=== PATIENT | female | born 1995 ===

== ENCOUNTER 2024-01-27 03:04 | Outpatient (CLI) | payer MEDICAID ==
[2024-01-27] VITALS (21 sets, daily range): BP systolic 94–128; BP diastolic 40–89; PULSE 50–91
[2024-02-02] MEDS ORDERED: OXYB-58 PO (19:42)
[2024-02-02] MEDS ORDERED: CHOL500050 PO (19:42)
[2024-02-02] MEDS ORDERED: FLUO20TA28 PO (19:42)
[2024-02-02] MEDS ORDERED: LURA120T2 PO (19:42)
[2024-02-02] MEDS ORDERED: PROP10TA10 PO (19:42)
[2024-02-02] MEDS ORDERED: NIFE-34 PO (19:42)
[2024-02-02] MEDS ORDERED: GUAN4TAB3 PO (19:42)
== END 2024-01-27 23:59 | disposition home or self-care (01) ==
LOC: CARD DIAG 03:04
PROVIDERS: ATTEND Physician Assistant
DX: R42 Dizziness and giddiness (principal)
CPT/HCPCS: 93660

== ENCOUNTER 2024-02-03 08:18 | Day surgery (SDC) | payer MEDICAID ==
[~2024-02-03] VITALS: Ht 170.2 cm; Wt 90.9 kg
[~2024-02-03 08:18] MED LIST: CHOL500050 PO; FLUO20TA28 PO; GUAN4TAB3 PO; LURA120T2 PO; NIFE-34 PO; OXYB-58 PO; PROP10TA10 PO
[2024-02-03 08:42] VITALS: BP 117/59; PULSE 68; RESP 20
[2024-02-03] MEDS ORDERED: LIDOcaine 2% Viscous 15ml cup ONE (09:22)
[2024-02-03] MEDS ORDERED: MIDAZolam 1 MG/ML 5ML VIAL ONE (09:22)
[2024-02-03] MEDS ORDERED: diphenhydrAMINE 50 mg/ml inj ONE (09:22)
[2024-02-03] MEDS ORDERED: fentaNYL/PF 50MCG/1 ML 2ML syringe ONE (09:22)
[2024-02-03 09:46] VITALS: BP 120/82; PULSE 72; RESP 16; O2SAT 96
[2024-02-03 09:56] VITALS: BP 121/85; PULSE 62; RESP 19; O2SAT 95
[2024-02-03 10:06] VITALS: BP 110/75; PULSE 60; RESP 18; O2SAT 97
[2024-02-03 10:16] VITALS: BP 121/73; PULSE 58; RESP 16; O2SAT 96
== END 2024-02-03 10:36 | disposition home or self-care (01) ==
LOC: GI LAB 08:18
PROVIDERS: ATTEND Internal Medicine Gastroenterology
DX: R07.89 Other chest pain (principal); K21.00 Gastro-esophageal reflux disease with esophagitis, without bleeding; K29.70 Gastritis, unspecified, without bleeding
CPT/HCPCS: 43239; J1200; J2250; J3010; J7030; Z7512; 99152; A4620